=== PATIENT | female | born 1975 | race Two or more races ===

== ENCOUNTER → 2019-06-24 | Emergency (ER) | payer MEDICAID ==
[~2019-06-24] VITALS: Ht 149.9 cm; Wt 74.8 kg
[~2019-06-24] MED LIST: IBUPROFEN 600 MG TABLET PO ONE
--- NOTE | 2019-06-24 00:35 | NUR ---
Pt in bed. Pt assesed by MD. Masha RN at the bedside.
[2019-06-24 00:41] VITALS: BP 140/96
--- NOTE | 2019-06-24 00:48 | NUR ---
LEFT EYE=25 RIGHT EYE=19
== END | disposition home or self-care (01) ==
LOC: ER 00:26
DX: S05.11XA Contusion of eyeball and orbital tissues, right eye, initial encounter (principal); D18.09 Hemangioma of other sites; X58.XXXA Exposure to other specified factors, initial encounter; Y93.89 Activity, other specified; Y92.89 Other specified places as the place of occurrence of the external cause; Y99.8 Other external cause status